=== PATIENT | female | born 2000 | race Caucasian/White ===

== ENCOUNTER 2019-12-13 17:02 | Inpatient (IN) | payer MEDICAID ==
[~2019-12-13] VITALS: Ht 162.6 cm; Wt 78.2 kg
[2019-12-13] VITALS (21 sets, daily range): BP systolic 121–141; BP diastolic 56–88; PULSE 72–121; TEMP 97.8–98.4
--- NOTE | 2019-12-13 17:10 | NUR ---
Patient arrives ambulatory with FOB with complaints of SROM at 1600. Patient denies contractions or vaginal bleeding. Patient reports normal movement. Changes into gown, EFM explained and placed. VS obtained. 1715- Amniotrace positive. Large amount of clear fluid noted. SVE 2/70/-2, posterior. Pericare given. Patient repositiioned WL and updated on plan of care. 1725- Dr. Wall notified of patient arrival and positive Amniotrace. SROM at 1600. Reviewed history, FHR strip and contraction pattern. Reviewed maternal vital signs. Admit orders, Pitocin augmentation and CMP/UA orders recieved. Patient updated on plan of care.
[2019-12-13] MEDS ORDERED: PRENATAL (17:24)
--- NOTE | 2019-12-13 18:20 | NUR ---
Report received from Estela ROBERTS. 1824: Monitors replaced. Pt just completed UA. Plan of care explained to pt. Quesitons answered. 1833: IV started and labs obtained via IV site. LR bolus infusing without difficulties. Consents completed. 1929: at nurses station and reviews FHR strip. Orders to start pitocin at this time. See physican notification. 1936: Pitocin explained and started at this time. Pt denies any questions.
[2019-12-13 19:01] LABS: BASO % 0.3 % (0.0-2.0); EOS # 0.1 (0.0-0.7); EOS % 0.5 % (0-4.0); GRAN % 71.7 % (42.2-75.2); HEMOGLOBIN 10.5 g/dl (12.5-16.0); LYMPH # 2.1 (1.2-3.4); MEAN CELL VOLUME 82 fl (80.0-100.0); MEAN CORPUSCULAR HEMOGLOBIN 27 pg (27.0-31.0); MEAN CORPUSCULAR HGB CONC 33 g/dl (33.0-37.0); MEAN PLATELET VOLUME 12.7 fl (7.4-10.4); MONO # 0.6 (0.1-0.6); MONO % 6.1 % (1.7-9.3); PLATELET COUNT 188 K/mm3 (130-400); RED BLOOD COUNT 3.95 M/mm3 (4.10-5.30); REDCELL DISTRIBUTION WIDTH-CV 15.1 % (11.5-14.5)
[2019-12-13 19:04] LABS: HEMATOCRIT 32.2 % (37.0-47.0)
[2019-12-13 19:11] LABS: ALBUMIN 3.8 gm/dL (3.5-5.0); BILIRUBIN,TOTAL 0.3 mg/dL (0.0-1.0); CALCIUM 9.4 mg/dL (8.4-10.2); CREATININE, serum 0.67 (0.52-1.25); POTASSIUM 3.9 mmol/L (3.4-5.0); TOTAL PROTEIN 7.4 gm/dL (6.4-8.2)
[2019-12-13 19:13] LABS: COLLECTION METHOD CLEAN CATCH
[2019-12-13 19:39] LABS: MUCOUS Present /lpf; PH 7 (5-8); SQUAMOUS EPITHELIAL 20-50 /hpf; URINE APPEARANCE Cloudy; URINE BACTERIA Rare /hpf; URINE BILIRUBIN Negative (NEGATIVE); URINE BLOOD 2+ (NEGATIVE); URINE COLOR Yellow; URINE GLUCOSE Negative (NEGATIVE); URINE KETONE Negative (NEGATIVE); URINE LEUKOCYTE ESTERASE 3+ (NEGATIVE); URINE NITRATE Negative (NEGATIVE); URINE PROTEIN(semi-quant) 2+ (NEGATIVE); URINE RBC >50 /hpf; URINE UROBILINOGEN Negative (NEGATIVE); URINE WBC >50 /hpf
[2019-12-14] VITALS (42 sets, daily range): BP systolic 116–181; BP diastolic 49–93; PULSE 16–147; TEMP 97.7–102.9
--- NOTE | 2019-12-14 02:00 | NUR ---
Pt up to restroom and states she is starting to feel contractions more then just cramping at this time. 0230: Pt breathing through contractions and states "she feels like she is going to faint." Pt laid flat. SVE /-2. Forebag noted with exam. Pt requesting epidural at this time. LR bolus started infusing. Marlen CRANE OPERATOR notified.
--- NOTE | 2019-12-14 03:06 | NUR ---
Marlen LOVE at bedside for epidural. Pt assisted to edge of bed. Pulse ox applied. Difficulty tracing FHR due to maternal position. Procedure explained by BARK SCALER. 0310: at home reviewing FHR strip and elevated Bp's and wanting an update on pt. See physican notification. 0314: Test dose administered by Marlen LOVE. See anesthesia records. 0319: Pt assisted to wedged left position. Plan of care and safety precautions explained to pt who verbalizes her understanding. Pt states she is already starting to feel relief from her contractions.
--- NOTE | 2019-12-14 06:30 | NUR ---
0630-Recieved bedside shift report from ALEJANDRA Ji. Patient reports comfortable with epidural. IVF to left hand. Olivarez to DD, clear yellow urine. FHR with moderate variability, intermittent late decels noted, repositioned from laying flat on back to WL. 0640-Repositioned LL with peanut ball. 0653-Dr. Wall called unit reviewed patient strip with MD and plan of care. see MD notification. 0714-SVE /+1 Olivarez discontinued instructed patient on how to push. 0720-Patient begins pushing with contraction. Moves vertes well. 0733-Dr. Wall on unit. In to see patient. Instructs to continue to push with patient. 0755-Request Dr. Wall to room. Patient begins pushing with MD at bedside. 0800-Spontaneous delivery of head assisted by Dr. Wall. Tight Nuchal X1 reduced by MD. Immediate follow of shoulders. Viabel male infant to mothers abdomen, Care of assumed by Fercho Rodriguez RN. Apgars 9/9/9. 0803-Spontaneous delivery of intact placenta by MD. Fundal massage firm. Lochia WNL. EBL 400ml. Pitocin bolus per MD orders and protocol. 2nd Degre perineal and R labial laceration repaired by MD. Radha care provided. Updated on safety and plan of care.
--- NOTE | 2019-12-14 11:30 | NUR ---
1130-Patient up to bathroom with assist x1 to wheelchair and to toilet. Unable to void. Pericare provided. Updated on plan of care and safety. Taken to room, oriented to room. 1230-Easily ambulates to bathroom with standby, voids 250ml clear juan urine. Pericare by patient. 1349-Assisted with latching infant to right breast.
[2019-12-14 17:13] LABS: MEAN CELL VOLUME 82 fl (80.0-100.0); MEAN CORPUSCULAR HGB CONC 31 g/dl (33.0-37.0); MEAN PLATELET VOLUME 12.3 fl (7.4-10.4); PLATELET COUNT 174 K/mm3 (130-400); RED BLOOD COUNT 3.57 M/mm3 (4.10-5.30); REDCELL DISTRIBUTION WIDTH-CV 15.1 % (11.5-14.5)
[2019-12-14 17:26] LABS: HEMATOCRIT 29.3 % (37.0-47.0); HEMOGLOBIN 9.2 g/dl (12.5-16.0); MEAN CORPUSCULAR HEMOGLOBIN 26 pg (27.0-31.0)
--- NOTE | 2019-12-14 18:35 | NUR ---
Report received. Pt sitting up in bed . Pt states she is feeling better then earlier. Encouraged pt to eat dinner after nursing. Pt verbalized her understanding. 2029: VS taken. Temp 102.9, Pulse 147, BP 124/49. Manual pulse completed at this time time and remains in 140s. Pt states she is not feeling anymore pain then what she was feeling earlier and states all her pain is in her rectum. Pt Denies SOB. Assessment completed. 2046: notified. See physican notification. New orders obtained. 2055: Tylenol administered and LR started infusing without difficulties. See EMAR.
[2019-12-14] MEDS ORDERED: MOTRIN 800800 MG/TAB PO (18:48)
[2019-12-15 00:15] VITALS: BP 110/50; PULSE 107; TEMP 98.2
[2019-12-15 03:15] VITALS: BP 113/61; PULSE 93; TEMP 98
[2019-12-15 07:55] VITALS: BP 122/57; PULSE 94; TEMP 97.9
--- NOTE | 2019-12-15 09:05 | NUR ---
Initial visit; Parents thanked Lan Engineer for visit and for offering congratulations and God's blessings for the of their son. Lan Engineer thanked family for choosing our hospital.
[2019-12-15 15:30] VITALS: BP 125/62; PULSE 94; TEMP 98.4
[2019-12-15 20:46] VITALS: BP 128/68; PULSE 84; TEMP 97.8
[2019-12-16 01:25] VITALS: BP 134/65; PULSE 95; TEMP 98.4
[2019-12-16 07:45] VITALS: BP 114/47; PULSE 79; TEMP 98.1
== END 2019-12-16 14:00 | disposition home or self-care (01) | DRG 807 ==
LOC: LDRO 17:02 → LDR 19:48 → OB 19:49 → LDRO 19:49 → LDR 19:49 → OB 12-14 12:30
PROVIDERS: ADMIT Obstetrics & Gynecology
PROC: 10E0XZZ Delivery of Products of Conception, External Approach (ICD-10-PCS; principal; 2019-12-14)
PROC: 0KQM0ZZ Repair Perineum Muscle, Open Approach (ICD-10-PCS; 2019-12-14)
DX: O13.4 Gestational [pregnancy-induced] hypertension without significant proteinuria, complicating childbirth (principal); Z37.0 Single live birth; O34.03 Maternal care for unspecified congenital malformation of uterus, third trimester; O69.1XX0 Labor and delivery complicated by cord around neck, with compression, not applicable or unspecified; O70.1 Second degree perineal laceration during delivery; Z3A.39 39 weeks gestation of pregnancy
CPT/HCPCS: J2590; J7120